=== PATIENT | male | born 1970 | race African-American/Black ===

== ENCOUNTER 2023-08-08 09:19 | Inpatient (IN) | payer OTHER, SELFPAY ==
[~2023-08-08] VITALS: Ht 177.8 cm; Wt 88.5 kg
[~2023-08-08 09:19] MED LIST: AMLO-258 PO
[2023-08-08] MEDS ORDERED: LISI-892 PO (09:51)
[2023-08-08] MEDS ORDERED: LORazepam 2 MG TABLET PO PRN (11:45)
[2023-08-08] MEDS ORDERED: ZOLPIDEM TARTRATE 10 MG TABLET PO PRN (11:45)
[2023-08-08] MEDS ORDERED: OLANZapine 5 MG RAPDIS TABLET PO PRN (11:45)
[2023-08-08] MEDS: LORazepam 2 MG/ML VIAL IM ONE (11:53)
[2023-08-08] MEDS: DiphenhydrAMINE HCL 50 MG/ML VIAL IM ONE (11:54)
[2023-08-08] MEDS: HALOPERIDOL LACTATE 5 MG/ML VIAL IM ONE (11:54)
[2023-08-08] MEDS: LORazepam 1 MG TABLET PO ONE (12:11)
[2023-08-08] MEDS: DiphenhydrAMINE HCL 25 MG CAPSULE PO ONE (12:11)
[2023-08-08] MEDS: HALOPERIDOL 5 MG TABLET PO ONE (12:11)
[2023-08-08 14:05] LABS: COVID AG,FIA SOURCE NASAL SWAB
[2023-08-08 14:30] LABS: SARS-COV2 (COVID) ANTIGEN,FIA Negative (Negative)
[2023-08-08 16:38] LABS: BASOPHILS % (AUTO) 0.6 % (0.0-2.0); EOSINOPHILS % (AUTO) 1.3 % (1.0-6.0); HEMATOCRIT 35.1 % (41-53); HEMOGLOBIN 11.5 g/dL (13.5-17.5); LYMPHOCYTES # (AUTO) 2.9 K/uL (1.0-4.8); LYMPHOCYTES % (AUTO) 30.2 % (22.0-44.0); MEAN CORPUSCULAR HEMOGLOBIN 28.1 pg (26.0-34.0); MEAN CORPUSCULAR HGB CONC 32.6 G/dL (31.0-37.0); MEAN CORPUSCULAR VOLUME 86 fL (80-100); MONOCYTES # (AUTO) 1.1 K/uL (0.1-1.0); MONOCYTES % (AUTO) 11.8 % (2.0-9.0); NEUTROPHILS # (AUTO) 5.4 K/uL (1.8-7.7); NEUTROPHILS % (AUTO) 56.1 % (40.0-70.0); PLATELET COUNT (AUTO) 243 K/uL (150-450); RED BLOOD CELL COUNT(AUTO) 4.08 MIL/uL (4.50-5.90); RED CELL DISTRIBUTION WIDTH 14.5 % (11.5-14.5); WHITE BLOOD COUNT (AUTO) 9.7 K/uL (4.5-11.0)
[2023-08-08 16:44] LABS: ANION GAP 11 mmol/L (8-16); CALCIUM, TOTAL 8.5 mg/dL (8.8-10.5); CARBON DIOXIDE 27 mmol/L (22-29); CHLORIDE 106 mmol/L (98-107); CREATININE 1.38 mg/dL (0.60-1.30); GLOMERULAR FILTR. RATE CALC > 60 mL/min (>60); GLUCOSE,RANDOM 87 mg/dL (70-110); POTASSIUM 3.6 mmol/L (3.5-5.1); SODIUM SERUM 144 mmol/L (136-145); UREA NITROGEN, BLOOD 13 mg/dL (7-18)
[2023-08-08 16:49] LABS: ALANINE AMINOTRANSFERASE 56 U/L (12-78); ALKALINE PHOSPHATASE 41 U/L (46-116); ASPARTATE AMINOTRANSFERASE 46 U/L (15-37); BILIRUBIN,TOTAL 0.7 mg/dL (0.1-1.0); TOTAL PROTEIN, SERUM 6.8 g/dL (6.4-8.2)
[2023-08-08 21:00] VITALS: BP 132/84; PULSE 97; RESP 18; TEMP 98.1; O2SAT 98
[2023-08-08] MEDS ORDERED: MAGNESIUM HYDROXIDE SUSPENSION 30 ML UDCUP PO PRN (21:00)
[2023-08-08] MEDS ORDERED: ACETAMINOPHEN 325 MG TABLET PO PRN (21:00)
[2023-08-08] MEDS ORDERED: HydrOXYzine PAMOATE 50 MG CAPSULE PO PRN (21:00)
[2023-08-08] MEDS ORDERED: PROMETHAZINE HCL 25 MG TABLET PO PRN (21:00)
[2023-08-08] MEDS ORDERED: LOPERAMIDE HCL 2 MG CAPSULE PO PRN ×2 (21:00)
[2023-08-08] MEDS ORDERED: DIAZEPAM 10 MG TABLET PO PRN (21:00)
[2023-08-08] MEDS ORDERED: TUBERCULIN, PURIFIED PROTEIN DERIVATIVE 5 TU/0.1 ML SYRINGE ID ONE (21:00)
[2023-08-08] MEDS ORDERED: GuaiFENesin/D-METHORPHAN [SUGAR-FREE] 200-20MG/10 ML SYRUP UDCUP PO PRN (21:00)
[2023-08-08] MEDS ORDERED: MAG HYDROX/ALUMINUM HYD/SIMETH ES 30 ML SUSPENSION UDCUP PO PRN (21:00)
[2023-08-08 22:10] VITALS: BP 124/78; PULSE 94; RESP 18; TEMP 98.2; O2SAT 98
[2023-08-08] MEDS: MIRTAZAPINE 15 MG TABLET PO SCH (22:45)
[2023-08-08] MEDS: CYANOCOBALAMIN 1,000 MCG/ML VIAL IM ONE (22:45)
[2023-08-08] MEDS: MELATONIN 5 MG TABLET PO SCH (22:45)
[2023-08-08 23:10] VITALS: BP 122/78; PULSE 94; RESP 18; TEMP 98; O2SAT 94; O2SAT 97
[2023-08-09] VITALS (8 sets, daily range): BP systolic 110–133; BP diastolic 60–86; PULSE 87–94; RESP 17–18; TEMP 97–98.4; O2SAT 97–100
[2023-08-09] MEDS ORDERED: DIAZEPAM 10 MG TABLET PO PRN (07:00)
[2023-08-09] MEDS: NALTREXONE HCL 50 MG TABLET PO SCH (08:45)
[2023-08-09] MEDS: FOLIC ACID 1 MG TABLET PO SCH (08:45)
[2023-08-09] MEDS: MULTIVITAMINS WITH MINERALS, THERAPEUTIC TABLET PO SCH (08:45)
[2023-08-09] MEDS: THIAMINE 100 MG TABLET PO SCH (08:45)
[2023-08-09] MEDS: DIAZEPAM 10 MG TABLET PO SCH (08:45)
[2023-08-09] MEDS: OMEGA-3/DHA/EPA/FISH OIL 1,000 MG CAPSULE PO SCH (08:46)
[2023-08-09 10:53] LABS: HEMOGLOBIN A1C 5.6 % (3.8-5.6)
[2023-08-09 11:18] LABS: CHOL/HDL RATIO 4.3 (4.2-7.3); FREE T4 (FREE THYROXINE) 0.89 ng/dL (0.76-1.46); THYROID STIMULATING HORMONE 0.4 uIU/mL (0.36-3.74)
[2023-08-09 20:25] LABS: GLUCOMETER DEV NAME(LOC) POC.BV; POC SARS-COV2 AG, FIA NEGATIVE (NEGATIVE)
[2023-08-10] VITALS: BP 127/79; PULSE 93; RESP 18; TEMP 97.6; O2SAT 98
[2023-08-10 02:05] VITALS: BP 130/81; PULSE 97; RESP 18; TEMP 97.7; O2SAT 97
[2023-08-10 09:26] VITALS: BP 113/69; PULSE 92; RESP 18; TEMP 97.9; O2SAT 97
[2023-08-10] MEDS ORDERED: OMEG-135 PO (20:31)
[2023-08-10] MEDS ORDERED: MIRT-89 PO (20:31)
[2023-08-10] MEDS ORDERED: MELA5TAB40 PO (20:31)
[2023-08-10] MEDS ORDERED: NALT50TA33 PO (20:31)
[2023-08-10 22:00] VITALS: BP 136/94; PULSE 115; RESP 18; TEMP 97.8; O2SAT 97
[2023-08-10 23:28] VITALS: BP 112/66; PULSE 94; RESP 18; TEMP 98.2; O2SAT 96
[2023-08-11] MEDS ORDERED: DIAZEPAM 5 MG TABLET PO PRN (07:00)
[2023-08-11] MEDS: DIAZEPAM 5 MG TABLET PO SCH (08:55)
[2023-08-11 09:09] VITALS: BP 126/71; PULSE 94; RESP 18; TEMP 98.2; O2SAT 98
[2023-08-12] MEDS ORDERED: DIAZEPAM 5 MG TABLET PO PRN (07:00)
== END 2023-08-11 13:15 | disposition home or self-care (01) | DRG 885 ==
LOC: EMS 09:19 → B2S 15:40
PROVIDERS: ADMIT Psychiatry & Neurology Psychiatry; ATTEND Psychiatry & Neurology Psychiatry
PROC: GZHZZZZ Group Psychotherapy (ICD-10-PCS; principal; 2023-08-09)
PROC: GZ56ZZZ Individual Psychotherapy, Supportive (ICD-10-PCS; 2023-08-09)
DX: F25.9 Schizoaffective disorder, unspecified (principal); Z59.00 Homelessness unspecified; R45.851 Suicidal ideations; F17.200 Nicotine dependence, unspecified, uncomplicated; J44.9 Chronic obstructive pulmonary disease, unspecified; Z20.822 Contact with and (suspected) exposure to COVID-19; F43.10 Post-traumatic stress disorder, unspecified; I10 Essential (primary) hypertension; F41.9 Anxiety disorder, unspecified; M25.519 Pain in unspecified shoulder; M25.579 Pain in unspecified ankle and joints of unspecified foot; Z82.0 Family history of epilepsy and other diseases of the nervous system
CPT/HCPCS: 80053; 80061; 83036; 84439; 84443; 85025; 86592; 99285; J1200; J1630; J2060; J3420; Q9967